=== PATIENT | female | born 1975 | race African-American/Black ===

== ENCOUNTER 2019-02-13 07:55 | Inpatient (IN) | payer SELFPAY ==
[~2019-02-13] VITALS: Ht 157.5 cm; Wt 72.6 kg
[2019-02-13] MEDS ORDERED: ASPI-1393 PO (08:05)
[2019-02-13] MEDS ORDERED: HYDROCODONE/ACETAMINOPHEN 5/325MG TABLET PO STA (08:42)
[2019-02-13 08:55] LABS: BASOPHILS % 0.7 % (0.0-2.0); EOSINOPHILS % 1.1 % (0.0-5.0); HEMOGLOBIN. 10.8 g/dL (12.0-16.0); LYMPHOCYTES % 26.3 % (20.0-50.0); MEAN CORPUSCULAR HEMOGLOBIN 26.8 pg (28.0-32.0); MEAN CORPUSCULAR VOLUME 81.7 fL (81.0-99.0); MEAN PLATELET VOLUME 8.1 fl (7.4-10.4); MONOCYTES % 8.8 % (2.0-8.0); NEUTROPHILS % 63.1 % (40.0-76.0); PLATELET 283 x1000/uL (130-400); RED BLOOD CELL COUNT 4.04 mill/uL (4.2-5.4); RED CELL DISTRIBUTION WIDTH 16.1 % (11.6-14.6)
[2019-02-13 08:57] LABS: CLARITY URINE CLEAR (CLEAR); COLOR URINE YELLOW (YELLOW); KETONES URINE NEGATIVE (NEGATIVE); LEUKOCYTE ESTERASE URINE NEGATIVE (NEGATIVE); NITRITE URINE NEGATIVE (NEGATIVE); OCCULT BLOOD URINE NEGATIVE (NEGATIVE); PH URINE 5.5 (4.5-8.0); PROTEIN URINE NEGATIVE (NEGATIVE); SPECIFIC GRAVITY URINE 1.008 (1.005-1.030); UROBILINOGEN URINE 0.2 E.U./dL (0.2-1.0)
[2019-02-13 09:03] LABS: PROTHROMBIN TIME 10.7 sec (9.6-11.0)
[2019-02-13 09:20] LABS: CHLORIDE 106 mEq/L (98-107)
[2019-02-13] MEDS ORDERED: IOHEXOL-350 100 ML BOTTLE ONE ×2 (13:12→15:12)
[2019-02-13 15:00] VITALS: BP 120/78
[2019-02-13 15:30] VITALS: BP 120/78
[2019-02-13] MEDS ORDERED: ENOXAPARIN 40MG/0.4ML SYR SUBCUT SCH (17:00)
[2019-02-13] MEDS: MORPHINE SULFATE 2 MG/ML CPJ (NOT FOR IM USE) IV PRN ×2 (19:20→23:55)
[2019-02-13 20:34] VITALS: BP 113/72
[2019-02-13 22:07] LABS: *AMPHETAMINES SCREEN URINE NEGATIVE (NEGATIVE); *BARBITURATES SCREEN URINE NEGATIVE (NEGATIVE); *COCAINE SCREEN URINE NEGATIVE (NEGATIVE); CANNABINOID URINE SCREEN NEGATIVE (NEGATIVE); PHENCYCLIDINE URINE SCREEN NEGATIVE (NEGATIVE)
[2019-02-13 22:08] LABS: *BENZODIAZEPINES SCREEN URINE NEGATIVE (NEGATIVE); METHADONE URINE SCREEN NEGATIVE (NEGATIVE)
[2019-02-13 22:12] LABS: OPIATES URINE SCREEN PRESUMTIVE POSITIVE (NEGATIVE)
[2019-02-14 00:27] LABS: CREATINE KINASE 84 IU/L (26-192)
[2019-02-14 00:28] LABS: CREATINE KINASE MB FRACTION < 1.0 ng/mL (0.5-3.6)
[2019-02-14 00:30] VITALS: BP 116/70
[2019-02-14 04:00] VITALS: BP 106/72
[2019-02-14 07:57] LABS: CREATINE KINASE 74 IU/L (26-192)
[2019-02-14 07:58] LABS: CREATINE KINASE MB FRACTION < 1.0 ng/mL (0.5-3.6)
[2019-02-14] MEDS ORDERED: ASPIRIN 81MG EC TABLET PO SCH (09:00)
[2019-02-14] MEDS ORDERED: ACETAMINOPHEN 325MG TABLET PO PRN (11:00)
[2019-02-14 12:15] VITALS: BP 121/73
== END 2019-02-14 13:00 | disposition home or self-care (01) | DRG 203 ==
LOC: ER 07:55 → 6WST 12:14 → ENRESERV 13:41 → 6WST 16:00
PROVIDERS: ADMIT Internal Medicine Nephrology; ATTEND Internal Medicine Nephrology
DX: R07.89 Other chest pain (principal); D63.8 Anemia in other chronic diseases classified elsewhere; Z86.73 Personal history of transient ischemic attack (TIA), and cerebral infarction without residual deficits; Z98.51 Tubal ligation status; Z79.82 Long term (current) use of aspirin
CPT/HCPCS: 36415; 71045; 71275; 80305; 81003; 82550; 82553; 82962; 83880; 84484; 93005; 96372; 99285; J1650; J2270; Q9967